=== PATIENT | male | born 1995 | race Caucasian/White ===

== ENCOUNTER → 2020-01-02 11:20 | Outpatient (CLI) | payer BC, SELFPAY ==
--- NOTE | 2020-01-02 11:25 | RAD_ITS ---
STUDY: X-RAY - RIGHT KNEE REASON FOR EXAM: Male, 24 years old. knee pain TECHNIQUE: 4 view(s) of the knee. COMPARISON: None. FINDINGS: Normal visualized distal femur. Normal visualized proximal tibia and fibula. Normal proximal tibiofibular articulation. There is no demonstrated fracture. Normal medial femorotibial compartment. Normal lateral femorotibial compartment. Normal patellofemoral articulation. Mild joint effusion. The soft tissue structures are unremarkable. RAD/Knee 4 or More Views IMPRESSION: Mild joint effusion otherwise normal x-ray examination of the knee. Electronically Signed: Mary Gaona MD at 1:14 EDT , Service support ,
== END ==
PROVIDERS: PCP Pediatrics; Referring Provider Orthopaedic Surgery; Visit Provider Orthopaedic Surgery
DX: M25.561 Pain in right knee (principal)
CPT/HCPCS: 73564